=== PATIENT | female | born 1985 | race Two or more races ===

== ENCOUNTER 2017-09-02 04:47 | Inpatient (IN) | payer MEDICAID ==
[2017-09-02] MEDS ORDERED: OXYTOCIN 30 UNITS/LR 500 ML IV ×2 (06:30→16:30)
[2017-09-02] MEDS ORDERED: METHYLERGONOVINE 0.2 MG INJ IM ×2 (06:30→16:30)
[2017-09-02] MEDS ORDERED: MISOPROSTOL 200 MCG TAB PR ×2 (06:30→16:30)
[2017-09-02] MEDS ORDERED: CARBOPROST 250 MCG INJ IM ×2 (06:30→16:30)
[2017-09-02] MEDS: LACTATED RINGER'S 1,000 ML IV ×2 (06:31→07:42)
[2017-09-02 07:04] LABS: ADD MAN DIFF? NO
[2017-09-02 07:06] LABS: WHITE BLOOD COUNT 11.4 10^3/ul (4.8-10.8)
[2017-09-02 07:06] LABS: BASOPHIL # 0.1 10^3/ul (0.0-0.1); BASOPHILS % 0.4 % (0.0-2.0); EOSINOPHILS # 0.1 10^3/ul (0.0-0.5); EOSINOPHILS % 1.2 % (0.0-7.0); HEMATOCRIT 35.6 % (37.0-47.0); HEMOGLOBIN 11.8 g/dl (12.0-16.0); LYMPHOCYTES % 26.7 % (15.0-51.0); MEAN CORPUSCULAR HEMOGLOBIN 27.9 pg (29.0-33.0); MEAN CORPUSCULAR HGB CONC 33.1 g/dl (32.0-37.0); MEAN CORPUSCULAR VOLUME 84.2 fl (82.0-101.0); MEAN PLATELET VOLUME 12.1 fl (7.4-10.4); MONOCYTE # 0.8 10^3/ul (0.3-0.9); MONOCYTES % 7.4 % (0.0-11.0); NEUTROPHIL # 7.2 10^3/ul (1.6-7.5); NEUTROPHILS % 63.5 % (39.0-77.0); PLATELET COUNT 278 10^3/UL (140-415); RED BLOOD COUNT 4.23 10^6/ul (4.20-5.40); RED CELL DISTRIBUTION WIDTH 14.3 % (11.5-14.5)
[2017-09-02 07:26] LABS: INR 0.93; PROTIME 12.5 Sec (11.9-14.9)
[2017-09-02 07:27] LABS: PARTIAL THROMBOPLASTIN TIME 24.7 Sec (25.0-35.0)
[2017-09-02] MEDS: CITRIC ACID/SODIUM CITRATE 15 ML CUP PO (07:42)
[2017-09-02] MEDS: METOCLOPRAMIDE 10 MG INJ IV (07:43)
[2017-09-02] MEDS: FAMOTIDINE 20 MG INJ IV (07:46)
[2017-09-02 07:58] LABS: HEPATITIS B SURFACE ANTIGEN NEGATIVE (NEGATIVE)
[2017-09-02] MEDS ORDERED: morphine SULFATE/PF (10 MG/10 ML) INJ (08:04)
[2017-09-02] MEDS ORDERED: BUPIVACAINE 0.75%/DEXT (SPINAL) 2 ML INJ (08:04)
[2017-09-02] MEDS: CEFAZOLIN 2 GM/50 ML (PMX) 50 ML IV ×2 (08:47→13:35)
[2017-09-02] MEDS ORDERED: PHENYLephrine (100 MCG/ML) 5ML SYG ×2 (08:58→09:32)
[2017-09-02] MEDS ORDERED: EPHEDrine SULFATE 50 MG/5 ML SYG (08:58)
[2017-09-02] MEDS ORDERED: ONDANSETRON 4 MG INJ (08:59)
[2017-09-02] MEDS ORDERED: ZOLPIDEM 5 MG TAB PO (09:00)
[2017-09-02] MEDS ORDERED: DIPHENHYDRAMINE 50 MG INJ IV ×2 (09:00)
[2017-09-02] MEDS ORDERED: HYDROmorphONE 0.5 MG/0.5 ML SYG IV ×2 (09:00)
[2017-09-02] MEDS ORDERED: MEPERIDINE 25 MG INJ IV (09:00)
[2017-09-02] MEDS ORDERED: PROCHLORPERAZINE 10 MG INJ IV (09:00)
[2017-09-02] MEDS ORDERED: ONDANSETRON 4 MG INJ IV ×2 (09:00)
[2017-09-02] MEDS ORDERED: NALOXONE (0.4 MG/ML) INJ IV (09:00)
[2017-09-02] MEDS ORDERED: KETOROLAC 30 MG INJ IV (09:00)
[2017-09-02] MEDS ORDERED: FENTAnyl 50 MCG/ML VIAL IV (09:00)
[2017-09-02] MEDS ORDERED: MIDAZOLAM 1 MG/ML 2 ML INJ (09:27)
[2017-09-02] MEDS: HYDROmorphONE (0.2 MG/ML) 10ML SYG IV (12:04)
[2017-09-02] MEDS: OXYTOCIN 30 UNITS/LR 500 ML IV ×3 (12:15→21:30)
[2017-09-02] MEDS ORDERED: HYDROCODONE/APAP (5/325) TAB PO ×2 (16:30)
[2017-09-02] MEDS: IBUPROFEN 600 MG TAB PO ×2 (16:30→18:00)
[2017-09-02] MEDS ORDERED: OXYCODONE/ACETAMINOPHEN (5/325) TAB PO (16:30)
[2017-09-02] MEDS: CEFAZOLIN 1 GM/50 ML (PMX) 50 ML IVPB (17:11)
[2017-09-02 18:15] LABS: RAPID PLASMA REAGIN NONREACTIVE (NR)
[2017-09-02] MEDS: SENNA/DOCUSATE NA (8.6MG/50MG) TAB PO (21:25)
[2017-09-02] MEDS: LANOLIN 7 GM TUBE TOP (21:31)
[2017-09-03] MEDS: KETOROLAC 30 MG INJ IV ×2 (00:14→05:35)
[2017-09-03] MEDS: OXYTOCIN 30 UNITS/LR 500 ML IV ×3 (02:19→08:14)
[2017-09-03] MEDS: IBUPROFEN 600 MG TAB PO ×5 (06:00→23:30)
[2017-09-03] MEDS: LACTATED RINGER'S 1,000 ML IV ×2 (06:25→14:30)
[2017-09-03] MEDS: SENNA/DOCUSATE NA (8.6MG/50MG) TAB PO ×2 (09:32→21:15)
[2017-09-03 11:11] LABS: ADD MAN DIFF? NO
[2017-09-03 11:13] LABS: WHITE BLOOD COUNT 15.4 10^3/ul (4.8-10.8)
[2017-09-03 11:13] LABS: BASOPHILS % 0.2 % (0.0-2.0); EOSINOPHILS % 0.1 % (0.0-7.0); HEMOGLOBIN 9.7 g/dl (12.0-16.0); LYMPHOCYTES # 1.5 10^3/ul (0.8-2.9); MEAN CORPUSCULAR HEMOGLOBIN 27.7 pg (29.0-33.0); MEAN CORPUSCULAR HGB CONC 32.3 g/dl (32.0-37.0); MEAN CORPUSCULAR VOLUME 85.7 fl (82.0-101.0); MEAN PLATELET VOLUME 11.4 fl (7.4-10.4); MONOCYTE # 1.1 10^3/ul (0.3-0.9); MONOCYTES % 6.8 % (0.0-11.0); NEUTROPHIL # 12.7 10^3/ul (1.6-7.5); NEUTROPHILS % 82.4 % (39.0-77.0); PLATELET COUNT 236 10^3/UL (140-415); RED CELL DISTRIBUTION WIDTH 14.6 % (11.5-14.5)
[2017-09-03] MEDS: OXYCODONE/ACETAMINOPHEN (5/325) TAB PO (19:46)
[2017-09-04] MEDS: IBUPROFEN 600 MG TAB PO ×4 (05:40→23:53)
[2017-09-04] MEDS: SENNA/DOCUSATE NA (8.6MG/50MG) TAB PO ×2 (10:50→21:23)
[2017-09-05] MEDS: IBUPROFEN 600 MG TAB PO ×2 (05:55→12:14)
[2017-09-05] MEDS: SENNA/DOCUSATE NA (8.6MG/50MG) TAB PO (09:00)
[2017-09-05] MEDS: DIPHTH/TET/ACEL PERTUSS (ADULT) 0.5 ML VIAL IM* (12:03)
== END 2017-09-05 16:38 | disposition home or self-care (01) | DRG 766 ==
LOC: OBT 04:47 → L-D 04:47 → OBT 05:55 → L-D 05:55 → PP1 16:01
PROVIDERS: Obstetrics & Gynecology
PROC: 10D00Z1 Extraction of Products of Conception, Low, Open Approach (ICD-10-PCS; principal; 2017-09-02 09:15)
DX: O34.211 Maternal care for low transverse scar from previous cesarean delivery (principal); O69.81X0 Labor and delivery complicated by cord around neck, without compression, not applicable or unspecified; Z3A.38 38 weeks gestation of pregnancy; Z37.0 Single live birth
CPT/HCPCS: 36415; 85025; 85610; 85730; 86592; 86850; 86900; 86901; 87340; 94760; 99464